=== PATIENT | female | born 1995 ===

== ENCOUNTER 2018-10-26 11:28 | Emergency (ER) | payer SELFPAY ==
[2018-10-26 11:37] VITALS: BP 115/64
[2018-10-26] MEDS ORDERED: SOLU-Medrol IV ONE (11:57)
[2018-10-26] MEDS ORDERED: PEPCID IV ONE (11:57)
[2018-10-26] MEDS ORDERED: SODIUM CHLORIDE FLUSH SYRINGE 10 ML IV PRN (11:57)
--- NOTE | 2018-10-26 12:02 | Emergency Department Report ---
ED Allergic Reaction HPI - General Chief complaint: Allergic Reaction Stated complaint: ALLERGIC REACTION Time Seen by Provider: 10/26/18 11:50 Source: patient Mode of arrival: Stretcher Limitations: No Limitations - History of Present Illness Initial Comments: Marsha is a healthy 22 yo female who presents with allergic reaction to shrimp. At age 15, 7 years ago, she had a similar reaction requiring ED visit. 1 hour prior to arrival after eating shrimp, she developed facial swelling, hives on her face and arms and legs. She also developed tongue swelling and throat swelling. She received subcutaneous epinephrine, Benadryl and albuterol per EMS. Symptoms are rapidly improving. Prior to allergic reaction, she had been in good health. MD Complaint: allergic reaction, hives, facial swelling, other (tongue swelling throat swelling) -: Sudden, hour(s) (1) Exposure: food Symptoms: rash, itching, facial swelling, lip swelling, difficulty swallowing, difficulty breathing Severity: moderate Treatment Prior to Arrival: epinephrine, bronchodilator, other (benadryl) Previous Allergy History: prior ED visit(s) - Related Data Previous Rx's Medication Instructions Recorded Last Taken Type EPINEPHrine [Epipen] 0.3 mg IJ ONCE PRN #1 auto.injct 10/26/18 Unknown Rx Famotidine 20 mg PO BID 4 Days #8 tablet 10/26/18 Unknown Rx diphenhydrAMINE [Benadryl CAP] 25 mg PO Q6HR 4 Days #12 capsule 10/26/18 Unknown Rx predniSONE [Prednisone] 50 mg PO DAILY 5 Days #5 tablet 10/26/18 Unknown Rx Allergies Allergy/AdvReac Type Severity Reaction Status Date / Time shrimp Allergy Hives Verified 10/26/18 11:34 ED Review of Systems ROS: Stated complaint: ALLERGIC REACTION Other details as noted in HPI Comment: All other systems reviewed and negative Constitutional: denies: fever, malaise Respiratory: denies: cough Cardiovascular: denies: chest pain ED Past Medical Hx - Past Medical History Previous Medical History?: No - Surgical History Past Surgical History?: No - Social History Smoking Status: Never Smoker Substance Use Type: None - Medications Home Medications: Home Medications Medication Instructions Recorded Confirmed Last Taken Type EPINEPHrine [Epipen] 0.3 mg IJ ONCE PRN #1 auto.injct 10/26/18 Unknown Rx Famotidine 20 mg PO BID 4 Days #8 tablet 10/26/18 Unknown Rx diphenhydrAMINE [Benadryl CAP] 25 mg PO Q6HR 4 Days #12 capsule 10/26/18 Unknown Rx predniSONE [Prednisone] 50 mg PO DAILY 5 Days #5 tablet 10/26/18 Unknown Rx ED Physical Exam - General Limitations: No Limitations General appearance: alert, in no apparent distress - Head Head exam: Present: atraumatic, normocephalic, other (urticaria involving the majority of her face) - Eye Eye exam: Present: normal appearance - ENT ENT exam: Present: mucous membranes moist, other (normal size tongue) - Neck Neck exam: Present: normal inspection. Absent: tenderness, meningismus - Respiratory Respiratory exam: Present: normal lung sounds bilaterally. Absent: respiratory distress - Cardiovascular Cardiovascular Exam: Present: regular rate, normal rhythm, normal heart sounds. Absent: systolic murmur, diastolic murmur, rubs, gallop - GI/Abdominal GI/Abdominal exam: Present: soft, normal bowel sounds. Absent: distended, tenderness, guarding, rebound - Extremities Exam Extremities exam: Present: normal inspection - Back Exam Back exam: Present: normal inspection - Neurological Exam Neurological exam: Present: alert, oriented X3 - Psychiatric Psychiatric exam: Present: normal affect, normal mood - Skin Skin exam: Present: warm, urticaria (involving face arms chest legs). Absent: rash ED Course Vital Signs 10/26/18 11:34 Temperature 98 F Pulse Rate 97 H Respiratory 16 Rate Blood Pressure 115/64 O2 Sat by Pulse 97 Oximetry ED Medical Decision Making - Medical Decision Making Anaphylactic reaction to shrimp, patient received epinephrine and albuterol and Benadryl per EMS. Patient received IV famotidine and IV Solu-Medrol here in the ED. She was observed for 2 hours without any recurrence of symptoms. Her symptoms of urticaria and angioedema have resolved. Prescriptions provided: EpiPen, famotidine, diphenhydramine and prednisone Referred to roll clamp operator. Strongly encouraged patient to have EpiPen when eating very nearby. I informed patient that I am highly concerned that her next allergic reaction to shellfish could lead to airway compromise or anaphylactic shock. Critical Care Time: Yes (40) Critical care attestation.: If time is entered above; I have spent that time in minutes in the direct care of this critically ill patient, excluding procedure time. 40 minutes of critical care time excluding procedures were used in the care of the patient. Patient required multiple assessments and interventions. I reviewed the electronic medical record. I was concerned for airway compromise and possible impending cardiovascular collapse. 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
== END 2018-10-26 14:06 | disposition home or self-care (01) ==
LOC: ED 11:28
DX: T78.02XA Anaphylactic reaction due to shellfish (crustaceans), initial encounter (principal); Z91.013 Allergy to seafood
CPT/HCPCS: 96374; 96375; 99291; J2930